=== PATIENT | female | born 1995 | race American Indian/Alaskan Native ===

== ENCOUNTER 2016-10-09 09:18 | Emergency (ER) | payer MEDICAID ==
[2016-10-09 09:29] VITALS: BP 105/54
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
[2016-10-09] MEDS ORDERED: CLEOCIN IM ONE (09:51)
== END 2016-10-09 10:30 | disposition home or self-care (01) ==
LOC: ED 09:18
DX: K12.2 Cellulitis and abscess of mouth (principal); F17.200 Nicotine dependence, unspecified, uncomplicated
CPT/HCPCS: 96372; 99281

== ENCOUNTER 2016-10-10 07:50 | Inpatient (IN) | payer MEDICAID ==
[2016-10-10] MEDS ORDERED: MORPHINE IV ONE (09:32)
[2016-10-10] MEDS ORDERED: VANCOMYCIN/NS 1 GM/250 ML 1 GM/250 ML BAG IV ONE (09:34)
[2016-10-10 09:35] LABS: Basophils % (Auto) 0.5 % (0.0-1.8); Eosinophils % (Auto) 1.2 % (0.0-4.3); Hematocrit 35.9 % (30.3-42.9); Mean Corpuscular HGB Conc 34 % (30-34); Mean Corpuscular Hemoglobin 29 pg (28-32); Mean Corpuscular Volume 87 fl (79-97); Platelet Count 314 K/mm3 (140-440); Red Blood Count 4.12 M/mm3 (3.65-5.03); Red Cell Distribution Width 14.3 % (13.2-15.2); White Blood Count 7.7 K/mm3 (4.5-11.0)
[2016-10-10] MEDS ORDERED: FLAGYL 500 MG/100 ML 500 MG/100 ML BAG IV NR (10:00)
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
[2016-10-10 10:15] LABS: Alanine Aminotransferase 11 units/L (7-56); Albumin/Globulin Ratio 1.3 %; Alkaline Phosphatase 71 units/L (35-129); Anion Gap 15 mmol/L; BUN/Creatinine Ratio 11.25; Bilirubin,Total 0.6 mg/dL (0.1-1.2); Blood Urea Nitrogen 9 mg/dL (7-17); Calcium 8.4 mg/dL (8.4-10.2); Carbon Dioxide 27 mmol/L (22-30); Chloride 103.6 mmol/L (98-107); Glucose 111 mg/dL (65-100); Potassium 4.1 mmol/L (3.6-5.0); Sodium 141 mmol/L (137-145); Total Protein 7.1 g/dL (6.3-8.2)
[2016-10-10] MEDS ORDERED: FLAGYL ONE (10:24)
[2016-10-10] MEDS ORDERED: ZOSYN/NS 3.375GM/50ML 3.375 GM/50 ML BAG IV SCH (12:00)
[2016-10-10] MEDS ORDERED: TYLENOL PO PRN (14:23)
[2016-10-10] MEDS ORDERED: ZOFRAN IV PRN (14:23)
[2016-10-10] MEDS ORDERED: MORPHINE IV PRN (14:23)
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
[2016-10-10] MEDS: NACL 0.9% 1000 ML 1,000 ML IV SCH (19:22)
[2016-10-10] MEDS: UNASYN/NS 1.5 GM/50 ML 1.5 GM/50 ML BAG IV SCH (19:22)
[2016-10-10] MEDS: NORCO 5/325 PO PRN (19:22)
[2016-10-10] MEDS ORDERED: FLUARIX QUAD 2016-2017(36 MOS+) IM ONE (20:01)
--- NOTE | 2016-10-11 00:32 | Admit Criteria Form ---
Admission Criteria Documentation: CELLULITIS Clinical Indications for Admission to Inpatient Care (Place 'X' for any and all applicable criteria): Admission is indicated for ANY ONE of the following(1)(2)(3)(4)(5): [ ]I. Limb-threatening infection [ ]II. High-risk comorbid condition as indicated by ANY ONE of the following: [ ]a) Uncontrolled diabetes (eg, HbA1c greater than 10% (0.1)) [ ]b) Cirrhosis [ ]c) Neutropenia [ ]d) Asplenia [ ]e) Immunosuppression [ ]f) Symptomatic heart failure [ ]III. Failure of outpatient therapy as indicated by ALL of the following: [ ]a) Progression or no improvement after adequate trial (minimum of 48 hours, with longer period for stable lower extremity infection) [ ]b) Adequate antibiotic regimen as indicated by use of ANY ONE of the following: [ ]i) First-generation cephalosporin (e.g., cephalexin) [ ]ii) Antistaphylococcal penicillin (e.g., dicloxacillin) [ ]iii) Penicillin-allergic patient regimen (clindamycin, extended-spectrum fluoroquinolone, or doxycycline) [ ]iv) Resistant organism (eg, methicillin-resistant Staphylococcus aureus) regimen (6) [ ]c) Outpatient intravenous therapy regimen is not appropriate due to ANY ONE of the following. (7)(8)(9)(10): [ ]i) It was tried and was not successful (eg, progression of infection). [ ]ii) It is not available or cannot be arranged in a clinically appropriate time frame (e.g., the next day). [ ]iii) Clinical presentation (eg, acuity of infection, rapidity of progression, confirmed or suspected bacteremia) is judged to require ALL of the following: [ ]1) Immediate initiation of intravenous therapy ( eg, cannot wait for next day) [ ]2) Intensity of patient monitoring and observation (eg, vital sign measurement, checks for infection progression) that cannot be provided at other than inpatient level of care [ ]IV. Mental status changes [ ]V. Bacteremia [ ]. Hemodynamic instability [ ]VII. Suspected necrotizing soft tissue infection (e.g., gas in tissue)(11)( 12) [ ]VIII. Orbital infection (13)(14) [ ]IX. Associated surgical procedure (e.g., abscess drainage, debridement) not amenable to outpatient, emergency department, or observation care [ ]X. Cutaneous gangrene [ ]XI. High fever (temperature greater than 39.5 degrees C (103.1 degrees F) (oral)) not responsive to outpatient, emergency department, or observation care therapy [X ]XIII. Inpatient admission required rather than observation care (Also use Cellulitis: Observation Care as appropriate) because of ANY ONE of the following : [ ]a) Periorbital or perineal infection that is severe or worsening [ X]b) Severe pain requiring acute inpatient management [ ]c) IV fluid to replace significant ongoing (e.g., for over 24 hours) losses (greater than 3L/m2 per day) [ ]d) Compartment syndrome monitoring (17) [ ]e) Strict or protective (eg, laminar flow) isolation [ ]f) Urgent debridement or skin grafting [ ]g) Bone or joint debridement [ ]h) Immediate inpatient surgery [ X]i) Other condition, treatment or monitoring requiring inpatient admission Extended stay beyond goal length of stay may be needed for (1)(18): [ ]a) Necrotizing soft tissue infection or fasciitis [ ]b) Gram-negative infection [ ]c) Methicillin-resistant Staphylococcal aureus (MRSA) infection [ ]d) Peripheral venous insufficiency with cellulitis [ ]e) Extensive edema [ ]f) Sepsis or continued Hemodynamic instability [ ]g) Continued high fever or mental status change [ ]h) Bacteremia [ ]i) Active serious comorbid conditions ( eg, heart failure, renal insufficiency) The original [employer] content created by [email or web address] has been revised. The portions of the content which have been revised are identified through the use of italic text or in bold, and [facility] has neither reviewed nor approved the modified material. All other unmodified content is copyright [facility] [employer] Please see references footnoted in the original [facility] [employer] edition 2016 Admission Criteria Met: Yes
[2016-10-11] MEDS: UNASYN/NS 1.5 GM/50 ML 1.5 GM/50 ML BAG IV SCH ×4 (01:11→17:13)
[2016-10-11 07:21] LABS: Hematocrit 34.9 % (30.3-42.9); Hemoglobin 11.5 gm/dl (10.1-14.3); Mean Corpuscular HGB Conc 33 % (30-34); Mean Corpuscular Hemoglobin 29 pg (28-32); Mean Corpuscular Volume 87 fl (79-97); Platelet Count 283 K/mm3 (140-440); Red Blood Count 4.01 M/mm3 (3.65-5.03); Red Cell Distribution Width 14.5 % (13.2-15.2); White Blood Count 6.1 K/mm3 (4.5-11.0)
[2016-10-11 07:58] LABS: Anion Gap 18 mmol/L; BUN/Creatinine Ratio 12.85; Blood Urea Nitrogen 9 mg/dL (7-17); Calcium 8.4 mg/dL (8.4-10.2); Carbon Dioxide 23 mmol/L (22-30); Chloride 102.9 mmol/L (98-107); Glucose 69 mg/dL (65-100); Sodium 140 mmol/L (137-145)
[2016-10-11] MEDS: PROTONIX PO SCH (09:24)
[2016-10-11] MEDS ORDERED: FLUARIX QUAD 2016-2017(36 MOS+) IM ONE (12:00)
[2016-10-11] MEDS: NACL 0.9% 1000 ML 1,000 ML IV SCH (16:10)
[2016-10-11] MEDS ORDERED: AMBIEN PO PRN (16:12)
[2016-10-11] MEDS ORDERED: MOTRIN PO PRN (16:12)
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
[2016-10-11] MEDS: HEPARIN SUB-Q SCH (23:26)
[2016-10-11] MEDS: NORCO 5/325 PO PRN (23:27)
[2016-10-12] MEDS: UNASYN/NS 1.5 GM/50 ML 1.5 GM/50 ML BAG IV SCH ×4 (01:07→20:31)
[2016-10-12] MEDS: NORCO 5/325 PO PRN (04:28)
[2016-10-12] MEDS: NACL 0.9% 1000 ML 1,000 ML IV SCH ×2 (05:32→16:01)
[2016-10-12] MEDS: HEPARIN SUB-Q SCH ×2 (11:29→21:39)
[2016-10-12] MEDS: PROTONIX PO SCH (11:29)
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
[2016-10-13] MEDS: NACL 0.9% 1000 ML 1,000 ML IV SCH ×2 (01:39→11:03)
[2016-10-13] MEDS: UNASYN/NS 1.5 GM/50 ML 1.5 GM/50 ML BAG IV SCH ×4 (02:30→18:10)
[2016-10-13] MEDS: PROTONIX PO SCH (10:56)
[2016-10-13] MEDS: HEPARIN SUB-Q SCH (10:56)
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
[2016-10-13 16:05] VITALS: BP 119/78
== END 2016-10-13 20:30 | disposition home or self-care (01) | DRG 603 ==
LOC: ED 07:50 → 3A 14:51
PROVIDERS: ADMIT Internal Medicine; ATTEND Internal Medicine
DX: L03.211 Cellulitis of face (principal); H91.93 Unspecified hearing loss, bilateral; S01.552A Open bite of oral cavity, initial encounter
CPT/HCPCS: 36415; 80048; 80053; 81025; 85025; 85027; 90686; 96365; 96366; 96368; 96375; J0295; J1644; J2270; J2543; J3370; J7030

== ENCOUNTER 2017-01-04 19:58 | Emergency (ER) | payer MEDICAID ==
[2017-01-04 22:14] LABS: Basophils % (Auto) 0.7 % (0.0-1.8); Eosinophils % (Auto) 0.6 % (0.0-4.3); Hematocrit 44.7 % (30.3-42.9); Hemoglobin 14.7 gm/dl (10.1-14.3); Mean Corpuscular HGB Conc 33 % (30-34); Mean Corpuscular Hemoglobin 29 pg (28-32); Mean Corpuscular Volume 88 fl (79-97); Platelet Count 367 K/mm3 (140-440); Red Blood Count 5.05 M/mm3 (3.65-5.03); Red Cell Distribution Width 14.5 % (13.2-15.2); White Blood Count 6.7 K/mm3 (4.5-11.0)
[2017-01-04 22:26] LABS: Alanine Aminotransferase 15 units/L (7-56); Albumin 4.8 g/dL (3.9-5); Albumin/Globulin Ratio 1.3 %; Alkaline Phosphatase 75 units/L (35-129); Anion Gap 23 mmol/L; Blood Urea Nitrogen 10 mg/dL (7-17); Calcium 9.6 mg/dL (8.4-10.2); Carbon Dioxide 21 mmol/L (22-30); Chloride 100.3 mmol/L (98-107); Glucose 71 mg/dL (65-100); Lipase 17 units/L (13-60); Potassium 4.2 mmol/L (3.6-5.0); Sodium 140 mmol/L (137-145); Total Protein 8.5 g/dL (6.3-8.2)
[2017-01-04 23:43] LABS: Bilirubin,Urine NEG (Negative); Blood,Urine NEG (Negative); Ketones,Urine 80 mg/dL (Negative); Leukocyte Esterase,Urine TR (Negative); Mucus,Urine FEW /HPF; Nitrite,Urine NEG (Negative); Protein,Urine <15 mg/dL mg/dL (Negative); RBC,Urine < 1.0 /HPF (0.0-6.0); Urobilinogen,Urine < 2.0 mg/dL (<2.0)
--- NOTE | 2017-01-05 06:31 | Emergency Department Report ---
ED Chest Pain HPI - General Chief Complaint: Chest Pain Stated Complaint: GASTRIC PROBLEMS Time Seen by Provider: 01/05/17 02:22 Source: patient, family Mode of arrival: Ambulatory Limitations: No Limitations - History of Present Illness Initial Comments: The patient suffered from a vague intermittent chest discomfort which she communicated to her friend was associated with her reflux. The patient is deaf. Most of the history is obtained from the friend that is accompanying her. Patient also appears to be I'm interested in providing any additional information as she just lays on her side and tends to go to sleep. Her last vomiting was at about 4 in the morning as I understand it. She had no signs of GI bleeding. Her discomfort was in the left chest/left upper quadrant. Her friend got her some Zantac [id number]. She has not vomited since then. She is not complaining of any current pain. She's had no shortness of breath. 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 MD Complaint: chest pain (/upper abdominal pain) -: Gradual, week(s) Onset: during rest Quality: other (I assume burning like reflux said to be like the patient's reflux) Consistency: intermittent, now resolved Improves With: nothing Worsens With: nothing Context: other (GERD) re: nausea, vomting. denies: diaphoresis, dyspnea Other Symptoms: denies: cough, fever, syncope, rash Treatments Prior to Arrival: none - Related Data Home Medications Medication Instructions Recorded Confirmed Last Taken Ciprofloxacin HCl [Ciprofloxacin 500 mg PO BID 01/05/17 01/05/17 01/04/17 TAB] Norethindrone-E.estradiol-Iron 1 tab PO DAILY 01/05/17 01/05/17 01/03/17 [Junel Fe 24 Tablet] Previous Rx's Medication Instructions Recorded Last Taken Type Lansoprazole [Prevacid] 15 mg PO BID #30 cap 01/05/17 Unknown Rx Ondansetron [Zofran Odt] 4 mg PO Q6H #7 tab.rapdis 01/05/17 Unknown Rx Allergies Allergy/AdvReac Type Severity Reaction Status Date / Time No Known Allergies Allergy Verified 10/09/16 09:32 BRINA score - Brina Score Age > 65: (0) No Aspirin use within the Past 7 Days: (0) No 3 or more CAD Risk Factors: (0) No 2 or more Angina events in past 24 hrs: (0) No Known CAD with more than 50% Stenosis: (0) No Elevated Cardiac Markers: (0) No ST Deviation Greater than 0.5mm: (0) No BRINA Score: 0 ED Review of Systems ROS: Stated complaint: GASTRIC PROBLEMS Other details as noted in HPI Constitutional: denies: chills, fever Eyes: denies: eye pain, eye discharge, vision change ENT: denies: ear pain, throat pain Respiratory: denies: cough, shortness of breath, wheezing Cardiovascular: as per HPI, chest pain. denies: palpitations Endocrine: no symptoms reported Gastrointestinal: as per HPI, abdominal pain. denies: nausea, diarrhea Genitourinary: denies: urgency, dysuria, discharge Musculoskeletal: denies: back pain, joint swelling, arthralgia Skin: denies: rash, lesions Neurological: denies: headache, weakness, paresthesias Psychiatric: denies: anxiety, depression Hematological/Lymphatic: denies: easy bleeding, easy bruising ED Past Medical Hx - Past Medical History Previous Medical History?: Yes Additional medical history: Had a cut on cheek. Swelling since one week. Not subsided. Left side face, cheek , from lips outward swollen. Unable to speak. - Surgical History Past Surgical History?: No - Social History Smoking Status: Never Smoker Substance Use Type: Alcohol - Medications Home Medications: Home Medications Medication Instructions Recorded Confirmed Last Taken Type Ciprofloxacin HCl [Ciprofloxacin 500 mg PO BID 01/05/17 01/05/17 01/04/17 History TAB] Lansoprazole [Prevacid] 15 mg PO BID #30 cap 01/05/17 Unknown Rx Norethindrone-E.estradiol-Iron 1 tab PO DAILY 01/05/17 01/05/17 01/03/17 History [ 24 Tablet] Ondansetron [Zofran Odt] 4 mg PO Q6H #7 tab.rapdis 01/05/17 Unknown Rx ED Physical Exam - General Limitations: Other (patient is deaf) General appearance: in no apparent distress, other (somewhat distracted and disinterested) - Head Head exam: Present: atraumatic, normocephalic - Eye Eye exam: Present: normal appearance, PERRL, EOMI. Absent: scleral icterus - ENT ENT exam: Present: normal exam, mucous membranes moist - Neck Neck exam: Present: normal inspection - Respiratory Respiratory exam: Present: normal lung sounds bilaterally. Absent: respiratory distress - Cardiovascular Cardiovascular Exam: Present: regular rate, normal rhythm. Absent: systolic murmur, diastolic murmur, rubs, gallop - GI/Abdominal GI/Abdominal exam: Present: soft, normal bowel sounds. Absent: distended, tenderness, guarding, rebound, rigid - Extremities Exam Extremities exam: Present: normal inspection, normal capillary refill. Absent: tenderness, pedal edema, joint swelling, calf tenderness - Back Exam Back exam: Present: normal inspection - Neurological Exam Neurological exam: Present: alert, oriented X3, CN II-XII intact. Absent: motor sensory deficit - Psychiatric Psychiatric exam: Present: normal affect, normal mood - Skin Skin exam: Present: warm, dry, intact, normal color. Absent: rash ED Course Vital Signs 01/04/17 01/05/17 01/05/17 21:29 00:28 00:31 Temperature 98.2 F 97.8 F Pulse Rate 69 75 Respiratory 18 18 Rate Blood Pressure 134/88 Blood Pressure 113/51 [Left] O2 Sat by Pulse 100 100 100 Oximetry 01/05/17 01/05/17 01/05/17 01:01 02:01 03:01 Temperature Pulse Rate Respiratory Rate Blood Pressure Blood Pressure [Left] O2 Sat by Pulse 100 99 100 Oximetry 01/05/17 01/05/17 01/05/17 04:01 05:01 06:01 Temperature Pulse Rate Respiratory Rate Blood Pressure Blood Pressure [Left] O2 Sat by Pulse 99 99 98 Oximetry 01/05/17 01/05/17 01/05/17 07:01 07:32 08:01 Temperature Pulse Rate Respiratory 18 Rate Blood Pressure 107/65 Blood Pressure [Left] O2 Sat by Pulse 100 100 100 Oximetry - Reevaluation(s) Reevaluation #1: Patient remained in no distress. She would did not vomit. Ultimately her tests were explained to her and she felt ready to go home. 01/05/17 11:11 ED Medical Decision Making - Lab Data Result diagrams: 01/04/17 21:47 01/04/17 21:47 Laboratory Results - last 24 hr 01/04/17 01/04/17 01/04/17 21:47 21:47 Unknown WBC 6.7 RBC 5.05 H Hgb 14.7 H Hct 44.7 H MCV 88 MCH 29 MCHC 33 RDW 14.5 Plt Count 367 Lymph % (Auto) 20.1 [place] % (Auto) 8.1 H Eos % (Auto) 0.6 Baso % (Auto) 0.7 Lymph # 1.3 [place] # 0.5 Eos # 0.0 Baso # 0.0 Seg Neutrophils % 70.5 H Seg Neutrophils # 4.7 Sodium 140 Potassium 4.2 Chloride 100.3 Carbon Dioxide 21 L Anion Gap 23 BUN 10 Creatinine 0.8 Estimated GFR > 60 BUN/Creatinine Ratio 12.50 Glucose 71 Calcium 9.6 Total Bilirubin 0.70 AST 22 ALT 15 Alkaline Phosphatase 75 Troponin T < 0.010 Total Protein 8.5 H Albumin 4.8 Albumin/Globulin Ratio 1.3 Lipase 17 Urine Color Yellow Urine Turbidity Clear Urine pH 5.0 Ur Specific [place] 1.017 Urine Protein <15 mg/dl Urine Glucose (UA) Neg Urine Ketones 80 Urine Blood Neg Urine Nitrite Neg Urine Bilirubin Neg Urine Urobilinogen < 2.0 Ur Leukocyte Esterase Tr Urine WBC (Auto) 1.0 Urine RBC (Auto) < 1.0 U Epithel Cells (Auto) 1.0 Urine Mucus Few Urine HCG, Qual Negative 01/05/17 01/05/17 01:39 03:38 WBC RBC Hgb Hct MCV MCH MCHC RDW Plt Count Lymph % (Auto) [place] % (Auto) Eos % (Auto) Baso % (Auto) Lymph # [place] # Eos # Baso # Seg Neutrophils % Seg Neutrophils # Sodium Potassium Chloride Carbon Dioxide Anion Gap BUN Creatinine Estimated GFR BUN/Creatinine Ratio Glucose Calcium Total Bilirubin AST ALT Alkaline Phosphatase Troponin T < 0.010 < 0.010 Total Protein Albumin Albumin/Globulin Ratio Lipase Urine Color Urine Turbidity Urine pH Ur Specific [place] Urine Protein Urine Glucose (UA) Urine Ketones Urine Blood Urine Nitrite Urine Bilirubin Urine Urobilinogen Ur Leukocyte Esterase Urine WBC (Auto) Urine RBC (Auto) U Epithel Cells (Auto) Urine Mucus Urine HCG, Qual Laboratory Results - last 24 hr 01/04/17 01/04/17 01/04/17 21:47 21:47 Unknown WBC 6.7 RBC 5.05 H Hgb 14.7 H Hct 44.7 H MCV 88 MCH 29 MCHC 33 RDW 14.5 Plt Count 367 Lymph % (Auto) 20.1 [place] % (Auto) 8.1 H Eos % (Auto) 0.6 Baso % (Auto) 0.7 Lymph # 1.3 [place] # 0.5 Eos # 0.0 Baso # 0.0 Seg Neutrophils % 70.5 H Seg Neutrophils # 4.7 PT INR APTT D-Dimer Sodium 140 Potassium 4.2 Chloride 100.3 Carbon Dioxide 21 L Anion Gap 23 BUN 10 Creatinine 0.8 Estimated GFR > 60 BUN/Creatinine Ratio 12.50 Glucose 71 Calcium 9.6 Total Bilirubin 0.70 AST 22 ALT 15 Alkaline Phosphatase 75 Troponin T < 0.010 Total Protein 8.5 H Albumin 4.8 Albumin/Globulin Ratio 1.3 Lipase 17 Urine Color Yellow Urine Turbidity Clear Urine pH 5.0 Ur Specific [place] 1.017 Urine Protein <15 mg/dl Urine Glucose (UA) Neg Urine Ketones 80 Urine Blood Neg Urine Nitrite Neg Urine Bilirubin Neg Urine Urobilinogen < 2.0 Ur Leukocyte Esterase Tr Urine WBC (Auto) 1.0 Urine RBC (Auto) < 1.0 U Epithel Cells (Auto) 1.0 Urine Mucus Few Urine HCG, Qual Negative 01/05/17 01/05/17 01/05/17 01:39 03:38 06:55 WBC RBC Hgb Hct MCV MCH MCHC RDW Plt Count Lymph % (Auto) [place] % (Auto) Eos % (Auto) Baso % (Auto) Lymph # [place] # Eos # Baso # Seg Neutrophils % Seg Neutrophils # PT 15.5 H INR 1.24 H APTT 28.6 D-Dimer 326.43 H Sodium Potassium Chloride Carbon Dioxide Anion Gap BUN Creatinine Estimated GFR BUN/Creatinine Ratio Glucose Calcium Total Bilirubin AST ALT Alkaline Phosphatase Troponin T < 0.010 < 0.010 Total Protein Albumin Albumin/Globulin Ratio Lipase Urine Color Urine Turbidity Urine pH Ur Specific [place] Urine Protein Urine Glucose (UA) Urine Ketones Urine Blood Urine Nitrite Urine Bilirubin Urine Urobilinogen Ur Leukocyte Esterase Urine WBC (Auto) Urine RBC (Auto) U Epithel Cells (Auto) Urine Mucus Urine HCG, Qual - EKG Data -: EKG Interpreted by Me EKG shows normal: sinus rhythm, axis, intervals, QRS complexes, ST-T waves Rate: normal - EKG Data Interpretation: normal EKG - Radiology Data Radiology results: report reviewed CTA was negative Critical care attestation.: If time is entered above; I have spent that time in minutes in the direct care of this critically ill patient, excluding procedure time. ED Disposition Clinical Impression: Atypical chest pain GERD (gastroesophageal reflux disease) Qualifiers: Esophagitis presence: esophagitis presence not specified Qualified Code(s): K21.9 - Gastro-esophageal reflux disease without esophagitis Disposition: DISCHARGED TO HOME OR SELFCARE Is pt being admited?: No Does the pt Need Aspirin: No Condition: Stable Instructions: Chest Pain (ED) Additional Instructions: Return any acute change or problem. Follow-up with your usual primary care physician if you do not have one see referral Prescriptions: Lansoprazole [Prevacid] 15 mg PO BID #30 cap Ondansetron [Zofran Odt] 4 mg PO Q6H #7 tab.rapdis Referrals: PRIMARY CARE, [Primary Care Provider] - 3-5 Days [facility] [Provider Group] - 2-3 Days Time of Disposition: 11:13
[2017-01-05] MEDS: NACL 0.9% 1000 ML 1,000 ML IV ONE (07:30)
[2017-01-05] MEDS: ZOFRAN IV ONE (07:31)
[2017-01-05 07:42] LABS: INR 1.24 (0.87-1.13); Partial Thromboplastin Time 28.6 Sec. (24.2-36.6)
--- NOTE | 2017-01-05 09:01 | Cat Scan Report ---
CTA CHEST: History: Chest pain. Technique: Helical CT following IV contrast. Pulmonary embolus protocol. Sagittal and coronal reformatted images. Rotational MIP images. Findings: Contrast bolus is satisfactory. No pulmonary embolus is identified. The thyroid gland, tracheobronchial tree, esophagus, heart, pericardium, mediastinal vessels, lung johnson and bony thorax are unremarkable. Impression: No evidence for pulmonary embolus. Unremarkable CT chest with contrast.
[2017-01-05 11:15] VITALS: BP 110/62
== END 2017-01-05 11:38 | disposition home or self-care (01) ==
LOC: ED 19:58
DX: K21.9 Gastro-esophageal reflux disease without esophagitis (principal); R07.89 Other chest pain
CPT/HCPCS: 36415; 71275; 80053; 81001; 81025; 83690; 84484; 85025; 85379; 85610; 85730; 93005; 93010; 96361; 96374; 99285; J2405; J7030; Q9967